=== PATIENT | female | born 1975 | race Caucasian/White ===

== ENCOUNTER 2017-05-07 14:14 | Outpatient (CLI) | payer OTHER | END 2017-05-07 18:26 | disposition home or self-care (01) | LOC: SMA 14:14 | PROVIDERS: ATTEND Family Medicine | DX: Z12.31 Encounter for screening mammogram for malignant neoplasm of breast (principal); I25.10 Atherosclerotic heart disease of native coronary artery without angina pectoris | CPT/HCPCS: G0202 ==

== ENCOUNTER 2018-06-02 13:13 | Outpatient (CLI) | payer OTHER | END 2018-06-02 20:38 | disposition home or self-care (01) | LOC: SMA 13:13 | PROVIDERS: ATTEND Family Medicine | DX: Z12.31 Encounter for screening mammogram for malignant neoplasm of breast (principal); R92.1 Mammographic calcification found on diagnostic imaging of breast | CPT/HCPCS: 77067 ==